=== PATIENT | male | born 1980 | race Caucasian/White ===

== ENCOUNTER 2018-04-16 08:25 | Day surgery (SDC) | payer OTHER ==
[~2018-04-16 08:25] MED LIST: COZAAR25 MG PO; METOPROLOL SUCC25 MG PO; SIMVASTATIN20 MG PO
== END 2018-04-16 14:05 | disposition home or self-care (01) ==
LOC: CIR.AMB 08:25
DX: M77.11 Lateral epicondylitis, right elbow (principal); S56.511A Strain of other extensor muscle, fascia and tendon at forearm level, right arm, initial encounter